=== PATIENT | female | born 1970 | race American Indian/Alaskan Native ===

== ENCOUNTER 2017-07-06 12:57 | Emergency (ER) | payer SELFPAY ==
[2017-07-06 13:34] VITALS: BP 133/71
[2017-07-06 14:02] LABS: Basophils % (Auto) 1.6 % (0.0-1.8); Eosinophils % (Auto) 0.6 % (0.0-4.3); Hematocrit 41.7 % (30.3-42.9); Hemoglobin 14.2 gm/dl (10.1-14.3); Mean Corpuscular HGB Conc 34 % (30-34); Mean Corpuscular Hemoglobin 31 pg (28-32); Mean Corpuscular Volume 90 fl (79-97); Platelet Count 272 K/mm3 (140-440); Red Blood Count 4.64 M/mm3 (3.65-5.03); Red Cell Distribution Width 14.6 % (13.2-15.2); White Blood Count 6.5 K/mm3 (4.5-11.0)
[2017-07-06 14:20] LABS: Anion Gap 19 mmol/L; BUN/Creatinine Ratio 27; Blood Urea Nitrogen 16 mg/dL (7-17); Calcium 9.5 mg/dL (8.4-10.2); Carbon Dioxide 27 mmol/L (22-30); Chloride 99.3 mmol/L (98-107); Glucose 91 mg/dL (65-100); Potassium 4.1 mmol/L (3.6-5.0); Sodium 141 mmol/L (137-145)
[2017-07-06 14:20] LABS: Urine Drugs of Abuse Note Disclamer
[2017-07-06 14:37] LABS: Bacteria,Urine 1+ /HPF (Negative); Bilirubin,Urine NEG (Negative); Blood,Urine NEG (Negative); Ketones,Urine NEG (Negative); Leukocyte Esterase,Urine NEG (Negative); Mucus,Urine 3+ /HPF; Nitrite,Urine NEG (Negative); Protein,Urine <15 mg/dL mg/dL (Negative); Urobilinogen,Urine < 2.0 mg/dL (<2.0)
== END 2017-07-06 13:45 | disposition left against medical advice (07) ==
LOC: ED 12:57
DX: R53.1 Weakness (principal); Z53.21 Procedure and treatment not carried out due to patient leaving prior to being seen by health care provider
CPT/HCPCS: 36415; 80048; 80307; 81001; 84703; 85025; G0480; 80320

== ENCOUNTER 2018-04-18 07:38 | Emergency (ER) | payer SELFPAY ==
[2018-04-18 08:09] VITALS: BP 128/85
[2018-04-18 08:59] LABS: Bilirubin,Urine NEG (Negative); Blood,Urine NEG (Negative); Color,Urine Yellow (Yellow); Mucus,Urine 1+ /HPF; Protein,Urine <15 mg/dL mg/dL (Negative); Urobilinogen,Urine < 2.0 mg/dL (<2.0)
[2018-04-18 09:04] LABS: HCG Qualitative,Urine Negative (Negative)
--- NOTE | 2018-04-18 10:40 | Emergency Department Report ---
ED Female HPI - General Chief complaint: Urogenital-Female Stated complaint: SEVERE PELVIN PAIN Time Seen by Provider: 04/18/18 10:06 Source: patient Mode of arrival: Ambulatory Limitations: No Limitations - History of Present Illness Initial comments: This is a 47-year-old female nontoxic, well nourished in appearance, no acute signs of distress presents to the ED with c/o of dysuria, polyuria, urinary frequency and vaginal discharge x1 week. Patient denies any vaginal pain or swelling. Patient denies any vaginal ulcers or lesions. Patient denies any nausea, vomiting, chest pain, shortness of breathe, fever, chills, headache, back pain, numbness, tingling, stiff neck. Patient denies any pelvic or abdominal pain. Patient denies any other urinary symptoms. Patient denies any allergies or PMH. MD Complaint: vaginal discharge, dysuria, possible STD -: week(s) (1) Radiation: non-radiating Severity: mild Severity scale (0 -10): 3 Quality: burning Consistency: constant Improves with: none Worsens with: urination Are you Now?: No Associated Symptoms: vaginal discharge, dysuria. denies: vaginal bleeding, abdominal pain, nausea/vomiting, fever/chills, headaches, loss of appetite, hematuria, rash, seizure, shortness of breath, syncope, weakness - Related Data Sexually active: Yes Previous Rx's Medication Instructions Recorded Last Taken Type Ferrous Gluconate [Ferrous 325 mg PO Q8HR #20 tablet 04/01/14 Unknown Rx Gluconate 325 MG tab] LORazepam [Ativan] 0.5 mg PO Q12HRT PRN #7 tablet 04/01/14 Unknown Rx hydrOXYzine PAMOATE [Vistaril] 50 mg PO Q6HR PRN #20 capsule 07/09/14 Unknown Rx Sulfamethoxazole/Trimethoprim 1 each PO BID #14 tablet 04/18/18 Unknown Rx [Bactrim DS TAB] Allergies Allergy/AdvReac Type Severity Reaction Status Date / Time shrimp Allergy Swelling Verified 07/06/17 13:29 ED Review of Systems ROS: Stated complaint: SEVERE PELVIN PAIN Other details as noted in HPI Constitutional: denies: chills, fever Eyes: denies: eye pain, eye discharge, vision change ENT: denies: ear pain, throat pain Respiratory: denies: cough, shortness of breath, wheezing Cardiovascular: denies: chest pain, palpitations Endocrine: no symptoms reported Gastrointestinal: denies: abdominal pain, nausea, diarrhea Genitourinary: urgency, dysuria, frequency, discharge. denies: hematuria Musculoskeletal: denies: back pain, joint swelling, arthralgia Skin: denies: rash, lesions Neurological: denies: headache, weakness, paresthesias Psychiatric: denies: anxiety, depression Hematological/Lymphatic: denies: easy bleeding, easy bruising ED Past Medical Hx - Past Medical History Previous Medical History?: Yes Additional medical history: anxiety. anemia. hypothyroid - Surgical History Additional Surgical History: right ankle. "tummy tuck". umbilical hernia repair. x 2 - Social History Smoking Status: Never Smoker Substance Use Type: None - Medications Home Medications: Home Medications Medication Instructions Recorded Confirmed Last Taken Type Ferrous Gluconate [Ferrous 325 mg PO Q8HR #20 tablet 04/01/14 Unknown Rx Gluconate 325 MG tab] LORazepam [Ativan] 0.5 mg PO Q12HRT PRN #7 tablet 04/01/14 Unknown Rx hydrOXYzine PAMOATE [Vistaril] 50 mg PO Q6HR PRN #20 capsule 07/09/14 Unknown Rx Sulfamethoxazole/Trimethoprim 1 each PO BID #14 tablet 04/18/18 Unknown Rx [Bactrim DS TAB] ED Physical Exam - General Limitations: No Limitations General appearance: alert, in no apparent distress - Head Head exam: Present: atraumatic, normocephalic - Eye Eye exam: Present: normal appearance Pupils: Present: normal accommodation - ENT ENT exam: Present: normal exam, mucous membranes moist - Neck Neck exam: Present: normal inspection, full ROM. Absent: tenderness, meningismus, lymphadenopathy - Respiratory Respiratory exam: Present: normal lung sounds bilaterally. Absent: respiratory distress, wheezes, rales, rhonchi, stridor, chest wall tenderness, accessory muscle use, decreased breath sounds, prolonged expiratory - Cardiovascular Cardiovascular Exam: Present: regular rate, normal rhythm, normal heart sounds. Absent: bradycardia, tachycardia, irregular rhythm, systolic murmur, diastolic murmur, rubs, gallop - GI/Abdominal GI/Abdominal exam: Present: soft, normal bowel sounds. Absent: distended, tenderness, guarding, rebound, rigid, diminished bowel sounds - Rectal Rectal exam: Present: deferred - External exam: Present: normal external exam, other (arrow point attacher Sybil RUBIO present during exam). Absent: erythema, swelling, lesions, lacerations, ecchymosis, bleeding Speculum exam: Present: normal speculum exam, cervical discharge (slight), other (arrow point attacher Sybil RN present during exam). Absent: erythema, vaginal discharge, vaginal bleeding, foreign body, tissue, laceration Bi-manual exam: Present: normal bi-manual exam, other (arrow point attacher Sybil RN present during exam). Absent: cervical motion tendernes, adnexal tenderness, adnexal mass, uterine enlargement, uterine tenderness - Extremities Exam Extremities exam: Present: normal inspection, full ROM, normal capillary refill. Absent: tenderness, joint swelling - Back Exam Back exam: Present: normal inspection, full ROM. Absent: tenderness, CVA tenderness (R), CVA tenderness (L), muscle spasm, paraspinal tenderness, vertebral tenderness, rash noted - Neurological Exam Neurological exam: Present: alert, oriented X3, normal gait - Psychiatric Psychiatric exam: Present: normal affect, normal mood - Skin Skin exam: Present: warm, dry, intact, normal color. Absent: rash ED Course Vital Signs 04/18/18 08:06 Temperature 98.3 F Pulse Rate 82 Respiratory 16 Rate Blood Pressure 128/85 O2 Sat by Pulse 100 Oximetry - Reevaluation(s) Reevaluation #1: 04/18/18 10:38 Patient is speaking in full sentences with no signs of distress noted. ED Medical Decision Making - Medical Decision Making This is a 47-year-old female that presents with vaginal discharge and UTI symptoms. Patient is stable was examined by me. There is no abdominal tenderness. No pelvic pain. UA obtained within normal limited but due to sympotms i will treat patient with Bactrim. Urine culture pending. Wet prep obtained. Gonorrhea chlamydia swab pending. Patient was instructed to return in 3-5 days for GC results. Patient wanted empirical treatment so patient received 250 mg Rocephin and 1 g of azithromycin by mouth. Patient was instructed to Follow-up with a primary care doctor in 3-5 days or if symptoms worsen and continue return to emergency room as soon as possible. At time of discharge, the patient does not seem toxic or ill in appearance. No acute signs of distress noted. Patient agrees to discharge treatment plan of care. No further questions noted by the patient. Critical care attestation.: If time is entered above; I have spent that time in minutes in the direct care of this critically ill patient, excluding procedure time. ED Disposition Clinical Impression: Possible exposure to STD, Vaginal discharge UTI (urinary tract infection) Qualifiers: Urinary tract infection type: site unspecified Hematuria presence: without hematuria Qualified Code(s): N39.0 - Urinary tract infection, site not specified Disposition: TO HOME OR SELFCARE Is pt being admited?: No Does the pt Need Aspirin: No Condition: Stable Additional Instructions: Follow-up with a primary care doctor in 3-5 days or if symptoms worsen and continue return to emergency room as soon as possible. Return in 3-5 days for gonorrhea and chlamydia results. Prescriptions: Sulfamethoxazole/Trimethoprim [Bactrim DS TAB] 1 each PO BID #14 tablet Referrals: PRIMARY MD HARRY [Primary Care Provider] - 3-5 Days EUSEBIA MUNOZ MD [Staff Physician] - 3-5 Days [facility] [place]Outside] - 3-5 Days [facility] [Outside] - 3-5 Days Forms: Work/School Release Form(ED)
[2018-04-18] MEDS ORDERED: ROCEPHIN IM ONE (10:53)
[2018-04-18] MEDS ORDERED: XYLOCAINE 1% MPF 5 mL INFILTRATI ONE (10:53)
[2018-04-18] MEDS ORDERED: ZITHROMAX PO ONE (10:53)
== END 2018-04-18 11:40 | disposition home or self-care (01) ==
LOC: ED 07:38
DX: N39.0 Urinary tract infection, site not specified (principal); N89.8 Other specified noninflammatory disorders of vagina; F41.9 Anxiety disorder, unspecified; E03.9 Hypothyroidism, unspecified; Z86.2 Personal history of diseases of the blood and blood-forming organs and certain disorders involving the immune mechanism; Z91.013 Allergy to seafood
CPT/HCPCS: 81001; 81025; 87086; 87210; 87591; 96372; 99283; J0696

== ENCOUNTER 2018-05-08 01:12 | Emergency (ER) | payer OTHER ==
[2018-05-08 01:49] LABS: Basophils % (Auto) 0.6 % (0.0-1.8); Eosinophils # (Auto) 0.1 K/mm3 (0.0-0.4); Eosinophils % (Auto) 1.7 % (0.0-4.3); Hematocrit 32.9 % (30.3-42.9); Hemoglobin 10.8 gm/dl (10.1-14.3); Lymphocytes # (Auto) 1.5 K/mm3 (1.2-5.4); Lymphocytes % (Auto) 26.5 % (13.4-35.0); Mean Corpuscular HGB Conc 33 % (30-34); Mean Corpuscular Hemoglobin 27 pg (28-32); Mean Corpuscular Volume 82 fl (79-97); Monocytes # (Auto) 0.4 K/mm3 (0.0-0.8); Monocytes % (Auto) 7.5 % (0.0-7.3); Platelet Count 212 K/mm3 (140-440); Red Blood Count 4.03 M/mm3 (3.65-5.03); Red Cell Distribution Width 18.8 % (13.2-15.2)
[2018-05-08 02:02] LABS: Alanine Aminotransferase 24 units/L (7-56); Albumin 4.6 g/dL (3.9-5); BUN/Creatinine Ratio 19; Blood Urea Nitrogen 13 mg/dL (7-17); Calcium 9.1 mg/dL (8.4-10.2); Hemolysis Index 2
[2018-05-08 02:14] LABS: Bilirubin,Urine NEG (Negative); Blood,Urine NEG (Negative); Color,Urine Yellow (Yellow); Mucus,Urine 1+ /HPF; Protein,Urine <15 mg/dL mg/dL (Negative); Urobilinogen,Urine < 2.0 mg/dL (<2.0); WBC,Urine < 1.0 /HPF (0.0-6.0)
--- NOTE | 2018-05-08 08:51 | Ultrasound Report ---
FINAL REPORT EXAM: US PELVIC COMPLETE HISTORY: abd and pelvic pain COMPARISONS: None. FINDINGS: Transabdominal grayscale pelvic ultrasound Anteverted uterus measures 13 x 8.7 x 10.2 cm. Heterogeneous myometrium contains several transmural fibroids, the largest of which is in the posterior uterine body measuring 4.3 x 4.7 x 4 cm. No definite new medial distortion or submucosal component. The endometrium is heterogeneous and measures up to 2 cm in thickness. The ovaries are not visualized due to position/overlying bowel gas. No free fluid in the pelvis. IMPRESSION: Enlarged uterus with multiple fibroids. Heterogeneous endometrium measures up to 2 cm in thickness. Nonvisualized ovaries.
--- NOTE | 2018-05-08 08:55 | Ultrasound Report ---
FINAL REPORT EXAM: US ABDOMEN COMPLETE HISTORY: abd and pelvic pain COMPARISONS: None FINDINGS: Grayscale and color Doppler ultrasound evaluation of the abdomen Liver is normal in size and contour. Hepatic parenchymal echogenicity is within normal limits. No parenchymal lesion identified. No intra or extrahepatic biliary ductal dilatation. The common duct measures approximately 5 millimeters in caliber. Unremarkable sonographic appearance of the gallbladder. No cholelithiasis. Gallbladder wall measures approximately 1-2 millimeters in thickness. Imaged portion of the pancreatic head is sonographically unremarkable. The remainder of the pancreas is not well seen secondary to overlying bowel gas. The spleen is sonographically unremarkable and measures up to 11.6 cm in length. Imaged portions of the aorta and inferior vena cava are unremarkable. No abdominal ascites or free fluid in Capellan's pouch. The right kidney measures up to 12.4 cm and the left kidney measures 13.2 cm in length. Kidneys are without hydronephrosis. A 2 millimeter non shadowing cortical echogenic focus is present in the lower left kidney, which may represent dystrophic calcification, ectopic fat or a small benign angiomyolipoma. IMPRESSION: Unremarkable abdominal ultrasound. Consider follow-up CT for more sensitive and specific evaluation of abdominal pain as warranted.
--- NOTE | 2018-05-08 10:26 | Emergency Department Report ---
ED General Adult HPI - General Chief complaint: Abdominal Pain Stated complaint: WEAK,NAUSEA,PEARSON,BACK PAIN Time Seen by Provider: 05/08/18 06:56 Source: patient Mode of arrival: Ambulatory Limitations: No Limitations - History of Present Illness Initial comments: 47-year-old female presents with a variety of concerns. She states he's been having intermittent headaches for a few weeks. She presently came across of suprapubic abdominal pain and some urinary frequency. She has a history of fibroids. She states that her last period was delayed. She does not report any acute vomiting. She's had no fever or chills. She states that her bowel movements are slower than usual. She denies any sort of neurological change. Her headaches are intermittent and not currently present. She doesn't describe severe headaches. She doesn't describe any neck discomfort. She states that she does have a tube bender hand and primary care physician. She does not consult them over the course the last several weeks. -: Gradual, week(s) Location: head, abdomen Radiation: non-radiation Quality: aching Consistency: intermittent, now resolved Improves with: none Worsens with: none Associated Symptoms: denies other symptoms Treatments Prior to Arrival: none - Related Data Previous Rx's Medication Instructions Recorded Last Taken Type Ferrous Gluconate [Ferrous 325 mg PO Q8HR #20 tablet 04/01/14 Unknown Rx Gluconate 325 MG tab] LORazepam [Ativan] 0.5 mg PO Q12HRT PRN #7 tablet 04/01/14 Unknown Rx hydrOXYzine PAMOATE [Vistaril] 50 mg PO Q6HR PRN #20 capsule 07/09/14 Unknown Rx Sulfamethoxazole/Trimethoprim 1 each PO BID #14 tablet 04/18/18 Unknown Rx [Bactrim DS TAB] traMADol [Ultram 50 MG tab] 50 mg PO Q6HR PRN #14 tablet 05/08/18 Unknown Rx Allergies Allergy/AdvReac Type Severity Reaction Status Date / Time shrimp Allergy Swelling Verified 07/06/17 13:29 ED Review of Systems ROS: Stated complaint: WEAK,NAUSEA,PEARSON,BACK PAIN Other details as noted in HPI Constitutional: denies: chills, fever Eyes: denies: eye pain, eye discharge, vision change ENT: denies: ear pain, throat pain Respiratory: denies: cough, shortness of breath, wheezing Cardiovascular: denies: chest pain, palpitations Endocrine: no symptoms reported Gastrointestinal: abdominal pain. denies: nausea, diarrhea Genitourinary: denies: urgency, dysuria, discharge Musculoskeletal: denies: back pain, joint swelling, arthralgia Skin: denies: rash, lesions Neurological: headache. denies: weakness, numbness, paresthesias, confusion, abnormal gait, vertigo Psychiatric: denies: anxiety, depression Hematological/Lymphatic: denies: easy bleeding, easy bruising ED Past Medical Hx - Past Medical History Previous Medical History?: Yes Additional medical history: anxiety. anemia. hypothyroid - Surgical History Past Surgical History?: Yes Additional Surgical History: right ankle. "tummy tuck". umbilical hernia repair. x 2 - Social History Smoking Status: Former Smoker Substance Use Type: None - Medications Home Medications: Home Medications Medication Instructions Recorded Confirmed Last Taken Type Ferrous Gluconate [Ferrous 325 mg PO Q8HR #20 tablet 04/01/14 Unknown Rx Gluconate 325 MG tab] LORazepam [Ativan] 0.5 mg PO Q12HRT PRN #7 tablet 04/01/14 Unknown Rx hydrOXYzine PAMOATE [Vistaril] 50 mg PO Q6HR PRN #20 capsule 07/09/14 Unknown Rx Sulfamethoxazole/Trimethoprim 1 each PO BID #14 tablet 04/18/18 Unknown Rx [Bactrim DS TAB] traMADol [Ultram 50 MG tab] 50 mg PO Q6HR PRN #14 tablet 05/08/18 Unknown Rx ED Physical Exam - General Limitations: No Limitations General appearance: alert, in no apparent distress - Head Head exam: Present: atraumatic, normocephalic - Eye Eye exam: Present: normal appearance, PERRL, EOMI. Absent: scleral icterus - ENT ENT exam: Present: mucous membranes moist - Neck Neck exam: Present: normal inspection. Absent: tenderness, meningismus - Respiratory Respiratory exam: Present: normal lung sounds bilaterally. Absent: respiratory distress - Cardiovascular Cardiovascular Exam: Present: regular rate, normal rhythm. Absent: systolic murmur, diastolic murmur, rubs, gallop - GI/Abdominal GI/Abdominal exam: Present: soft, normal bowel sounds, organomegaly (perhaps the uterus is somewhat full). Absent: distended, tenderness, guarding, rebound , rigid, bruit, pulsatile mass, hernia - Extremities Exam Extremities exam: Present: normal inspection, normal capillary refill. Absent: pedal edema, calf tenderness - Back Exam Back exam: Present: normal inspection. Absent: CVA tenderness (R), CVA tenderness (L) - Neurological Exam Neurological exam: Present: alert, oriented X3, CN II-XII intact. Absent: motor sensory deficit - Psychiatric Psychiatric exam: Present: normal affect, normal mood - Skin Skin exam: Present: warm, dry, intact, normal color. Absent: rash ED Course Vital Signs 05/08/18 05/08/18 05/08/18 01:13 06:36 06:46 Temperature 98.3 F Pulse Rate 77 63 Respiratory 18 16 Rate Blood Pressure 124/87 139/80 O2 Sat by Pulse 100 77 L 100 Oximetry 05/08/18 05/08/18 06:50 07:00 Temperature Pulse Rate 63 Respiratory 18 16 Rate Blood Pressure 136/82 O2 Sat by Pulse 99 100 Oximetry - Reevaluation(s) Reevaluation #1: Patient remained comfortable in the emergency Department. Acute analgesia was not indicated. She didn't complain of nausea and did not vomit either. Abdominal ultrasound showed multiple fibroids. I did not feel that CT imaging of the head was indicated at this. Patient is directed to follow up with her primary care provider or tube bender hand. 05/08/18 10:24 ED Medical Decision Making - Lab Data Result diagrams: 05/08/18 01:33 05/08/18 01:33 Laboratory Results - last 24 hr 05/08/18 05/08/18 05/08/18 01:33 01:33 01:33 WBC 5.6 RBC 4.03 Hgb 10.8 Hct 32.9 MCV 82 MCH 27 L MCHC 33 RDW 18.8 H Plt Count 212 Lymph % (Auto) 26.5 [place] % (Auto) 7.5 H Eos % (Auto) 1.7 Baso % (Auto) 0.6 Lymph # 1.5 [place] # 0.4 Eos # 0.1 Baso # 0.0 Seg Neutrophils % 63.7 Seg Neutrophils # 3.6 Sodium 141 Potassium 3.5 L Chloride 102.0 Carbon Dioxide 28 Anion Gap 15 BUN 13 Creatinine 0.7 Estimated GFR > 60 BUN/Creatinine Ratio 19 Glucose 90 Calcium 9.1 Total Bilirubin 0.20 AST 23 ALT 24 Alkaline Phosphatase 55 Total Protein 8.3 H Albumin 4.6 Albumin/Globulin Ratio 1.2 HCG, Qual Negative Urine Color Urine Turbidity Urine pH Ur Specific [place] Urine Protein Urine Glucose (UA) Urine Ketones Urine Blood Urine Nitrite Urine Bilirubin Urine Urobilinogen Ur Leukocyte Esterase Urine WBC (Auto) Urine RBC (Auto) U Epithel Cells (Auto) Urine Mucus 05/08/18 01:53 WBC RBC Hgb Hct MCV MCH MCHC RDW Plt Count Lymph % (Auto) [place] % (Auto) Eos % (Auto) Baso % (Auto) Lymph # [place] # Eos # Baso # Seg Neutrophils % Seg Neutrophils # Sodium Potassium Chloride Carbon Dioxide Anion Gap BUN Creatinine Estimated GFR BUN/Creatinine Ratio Glucose Calcium Total Bilirubin AST ALT Alkaline Phosphatase Total Protein Albumin Albumin/Globulin Ratio HCG, Qual Urine Color Yellow Urine Turbidity Clear Urine pH 6.0 Ur Specific [place] 1.023 Urine Protein <15 mg/dl Urine Glucose (UA) Neg Urine Ketones Neg Urine Blood Neg Urine Nitrite Neg Urine Bilirubin Neg Urine Urobilinogen < 2.0 Ur Leukocyte Esterase Neg Urine WBC (Auto) < 1.0 Urine RBC (Auto) 2.0 U Epithel Cells (Auto) 1.0 Urine Mucus 1+ - Radiology Data Radiology results: report reviewed interpreted by me: Multiple leiomyomata Critical care attestation.: If time is entered above; I have spent that time in minutes in the direct care of this critically ill patient, excluding procedure time. ED Disposition Clinical Impression: Abdominal pain Qualifiers: Abdominal location: lower abdomen, unspecified Qualified Code(s): R10.30 - Lower abdominal pain, unspecified Leiomyoma of uterus Qualifiers: Uterine leiomyoma location: unspecified location Qualified Code(s): D25.9 - Leiomyoma of uterus, unspecified Cephalalgia Qualifiers: Headache type: unspecified Headache chronicity pattern: chronic headache Intractability: not intractable Qualified Code(s): R51 - Headache Disposition: DC-01 TO HOME OR SELFCARE Is pt being admited?: No Does the pt Need Aspirin: No Condition: Stable Instructions: Abdominal Pain (ED), Uterine Fibroids (ED), Acute Headache (ED) Additional Instructions: Return any acute change or problem. Follow-up with your usual physicians. Your tube bender hand oncologist the ultrasound report that I have given you. Prescriptions: traMADol [Ultram 50 MG tab] 50 mg PO Q6HR PRN #14 tablet PRN Reason: Pain Referrals: PRIMARY CARE,MD [Primary Care Provider] - 3-5 Days usual, tube bender hand [Other] - 3-5 Days Time of Disposition: 10:28
[2018-05-08 11:02] VITALS: BP 142/80
== END 2018-05-08 11:27 | disposition home or self-care (01) ==
LOC: ED 01:12
DX: D25.9 Leiomyoma of uterus, unspecified (principal); R51 Headache; F41.9 Anxiety disorder, unspecified; D64.9 Anemia, unspecified; Z87.891 Personal history of nicotine dependence; Z91.013 Allergy to seafood
CPT/HCPCS: 36415; 76700; 76856; 80053; 81001; 84703; 85025; 99284

== ENCOUNTER 2018-06-23 07:43 | Emergency (ER) | payer SELFPAY ==
[2018-06-23 08:38] VITALS: BP 114/76
[2018-06-23 09:04] LABS: Basophils % (Auto) 0.6 % (0.0-1.8); Eosinophils # (Auto) 0.1 K/mm3 (0.0-0.4); Eosinophils % (Auto) 1.3 % (0.0-4.3); Hematocrit 32.3 % (30.3-42.9); Hemoglobin 10.5 gm/dl (10.1-14.3); Lymphocytes # (Auto) 1.7 K/mm3 (1.2-5.4); Lymphocytes % (Auto) 25.5 % (13.4-35.0); Mean Corpuscular HGB Conc 33 % (30-34); Mean Corpuscular Hemoglobin 27 pg (28-32); Mean Corpuscular Volume 83 fl (79-97); Monocytes # (Auto) 0.5 K/mm3 (0.0-0.8); Monocytes % (Auto) 8.1 % (0.0-7.3); Platelet Count 240 K/mm3 (140-440); Red Blood Count 3.91 M/mm3 (3.65-5.03); Red Cell Distribution Width 17.8 % (13.2-15.2)
[2018-06-23 09:15] LABS: Bilirubin,Urine NEG (Negative); Blood,Urine NEG (Negative); Color,Urine Yellow (Yellow); Mucus,Urine 3+ /HPF; Protein,Urine <15 mg/dL mg/dL (Negative); Urobilinogen,Urine < 2.0 mg/dL (<2.0)
[2018-06-23 09:37] LABS: Alanine Aminotransferase 19 units/L (7-56); Albumin 4.3 g/dL (3.9-5); BUN/Creatinine Ratio 23; Blood Urea Nitrogen 14 mg/dL (7-17); Calcium 9.2 mg/dL (8.4-10.2); Hemolysis Index 7; Lipase 25 units/L (13-60)
[2018-06-23] MEDS ORDERED: BENTYL IM ONE (09:37)
[2018-06-23] MEDS ORDERED: PEPCID PO ONE (09:37)
--- NOTE | 2018-06-23 09:39 | Emergency Department Report ---
Blank Doc - Documentation Documentation: Patient is a 48-year-old female who is presenting with epigastric discomfort after eating for the last week. Patient states she's had decreased appetite and belching. She states the pain is described as a burning sensation is 5 out of 10 in severity. Patient also has had some fatigue associated with these symptoms as well. A focused physical exam patient has no pain in the epigastrium or right upper quadrant on exam is no rebound or guarding and normal bowel sounds. Patient will have laboratory studies done an ultrasound of the upper abdominal be obtained to rule out surgical abnormalities.
--- NOTE | 2018-06-23 10:39 | Ultrasound Report ---
ULTRASOUND ABDOMEN LIMITED: TECHNIQUE: Transabdominal ultrasound with color Doppler interrogation. HISTORY: Epigastric and right upper quadrant pain after eating. COMPARISON: Abdominal sonogram dated 05/08/18. FINDINGS: LIVER: Normal. BILIARY SYSTEM: Normal. PANCREAS: Normal. RIGHT KIDNEY: Normal. PROXIMAL AORTA: Normal. ASCITES: None. IMPRESSION: Unremarkable exam.
--- NOTE | 2018-06-23 11:33 | Emergency Department Report ---
Vomiting/Diarrhea - HPI Chief Complaint: Abdominal Pain Stated Complaint: HEADACHE,FATIGUE/LOSS APPETITE Time Seen by Provider: 06/23/18 09:19 Duration: 1 week Severity: moderate Nausea/Vomiting Severity: None Diarrhea Severity: None Pain Location: Epigastric Pain Severity: Moderate Symptoms: Yes Able to Tolerate Fluids, No Watery Diarrhea, No Bloody diarrhea, No Fever, No Recent Unusual Foods, No Recent Untreated Water, No Recent use of Antibiotics, No Family w/ Similar Symptoms, No Contacts w/ Similar Symptoms, No Rash, No Hematuria, No Recent URI Symptoms Other History: This is a 48-year-old -[place] female who presents with abdominal pain and fatigue for 1 week. She reports an increased amount of belching after eating and throughout the day. Her appetite has decreased and there is discomfort or burning sensation to the epigastric dominant region after eating. She describes burning sensation in 5 out of 10 on pain scale. She is also concerned with fatigue and increased amounts of soft bowel that presented with symptoms. She denies nausea or vomiting, chest pain, vaginal discharge or bleeding, shortness of breath, and diarrhea. ED Review of Systems ROS: Stated complaint: HEADACHE,FATIGUE/LOSS APPETITE Other details as noted in HPI Constitutional: denies: chills, fever Respiratory: denies: cough, shortness of breath, wheezing Cardiovascular: denies: chest pain, palpitations Gastrointestinal: abdominal pain (epigastric region). denies: nausea, diarrhea Musculoskeletal: denies: back pain, joint swelling, arthralgia Skin: denies: rash, lesions Neurological: denies: headache, weakness, paresthesias Psychiatric: denies: anxiety, depression ED Past Medical Hx - Past Medical History Previous Medical History?: Yes Additional medical history: anxiety. anemia. hypothyroid - Surgical History Past Surgical History?: Yes Additional Surgical History: right ankle. "tummy tuck". umbilical hernia repair. x 2 - Social History Smoking Status: Never Smoker Substance Use Type: None - Medications Home Medications: Home Medications Medication Instructions Recorded Confirmed Last Taken Type Ferrous Gluconate [Ferrous 325 mg PO Q8HR #20 tablet 04/01/14 Unknown Rx Gluconate 325 MG tab] LORazepam [Ativan] 0.5 mg PO Q12HRT PRN #7 tablet 04/01/14 Unknown Rx hydrOXYzine PAMOATE [Vistaril] 50 mg PO Q6HR PRN #20 capsule 07/09/14 Unknown Rx Sulfamethoxazole/Trimethoprim 1 each PO BID #14 tablet 04/18/18 Unknown Rx [Bactrim DS TAB] traMADol [Ultram 50 MG tab] 50 mg PO Q6HR PRN #14 tablet 05/08/18 Unknown Rx Pantoprazole [Protonix] 40 mg PO QDAY #30 tablet 06/23/18 Unknown Rx Vomiting Diarrhea Exam - Exam General: Vital signs noted. No distress. Alert and acting appropriately. HEENT: Yes Moist Mucous Membranes, No Pharyngeal Erythema, No Pharyngeal Exudates, No Rhinorrhea, No Conjuctival Injection, No Frontal Tenderness, No Maxillary Tenderness Neck: No Adenopathy, No Rigidity Lungs: Yes Clear Lung Sounds, Yes Good Air Exchange, No Wheezes, No Stridor, No Cough, No Nasal Flaring, No Retractions, No Use of Accessory Muscles Heart exam: Regular: Yes, Murmur: No, Tachycardia: No Abdomen: Tenderness: No, Peritoneal Signs: No, Distention: No, Hyperactive Bowel sounds: No Skin exam: Rash: No, Edema: No, Normal turgor: Yes Neurologic: Alert and oriented, no deficits. Musculoskeletal: Unremarkable. ED Course Vital Signs 06/23/18 08:30 Temperature 98.6 F Pulse Rate 82 Respiratory 18 Rate Blood Pressure 114/76 O2 Sat by Pulse 100 Oximetry ED Medical Decision Making - Lab Data Result diagrams: 06/23/18 08:51 06/23/18 08:51 Lab Results 06/23/18 06/23/18 06/23/18 Range/Units 08:51 08:51 08:51 WBC 6.7 (4.5-11.0) K/mm3 RBC 3.91 (3.65-5.03) M/mm3 Hgb 10.5 (10.1-14.3) gm/dl Hct 32.3 (30.3-42.9) % MCV 83 (79-97) fl MCH 27 L (28-32) pg MCHC 33 (30-34) % RDW 17.8 H (13.2-15.2) % Plt Count 240 (140-440) K/mm3 Lymph % (Auto) 25.5 (13.4-35.0) % [place] % (Auto) 8.1 H (0.0-7.3) % Eos % (Auto) 1.3 (0.0-4.3) % Baso % (Auto) 0.6 (0.0-1.8) % Lymph # 1.7 (1.2-5.4) K/mm3 [place] # 0.5 (0.0-0.8) K/mm3 Eos # 0.1 (0.0-0.4) K/mm3 Baso # 0.0 (0.0-0.1) K/mm3 Seg Neutrophils % 64.5 (40.0-70.0) % Seg Neutrophils # 4.3 (1.8-7.7) K/mm3 Sodium 139 (137-145) mmol/L Potassium 3.9 (3.6-5.0) mmol/L Chloride 101.1 (98-107) mmol/L Carbon Dioxide 27 (22-30) mmol/L Anion Gap 15 mmol/L BUN 14 (7-17) mg/dL Creatinine 0.6 L (0.7-1.2) mg/dL Estimated GFR > 60 ml/min BUN/Creatinine Ratio 23 % Glucose 94 (65-100) mg/dL Calcium 9.2 (8.4-10.2) mg/dL Total Bilirubin 0.20 (0.1-1.2) mg/dL AST 17 (5-40) units/L ALT 19 (7-56) units/L Alkaline Phosphatase 48 (35-129) units/L Total Protein 8.5 H (6.3-8.2) g/dL Albumin 4.3 (3.9-5) g/dL Albumin/Globulin Ratio 1.0 % Lipase 25 (13-60) units/L HCG, Qual Negative (Negative) Urine Color (Yellow) Urine Turbidity (Clear) Urine pH (5.0-7.0) Ur Specific [place] (1.003-1.030) Urine Protein (Negative) mg/dL Urine Glucose (UA) (Negative) mg/dL Urine Ketones (Negative) mg/dL Urine Blood (Negative) Urine Nitrite (Negative) Urine Bilirubin (Negative) Urine Urobilinogen (<2.0) mg/dL Ur Leukocyte Esterase (Negative) Urine WBC (Auto) (0.0-6.0) /HPF Urine RBC (Auto) (0.0-6.0) /HPF U Epithel Cells (Auto) (0-13.0) /HPF Urine Mucus /HPF 06/23/18 Range/Units 08:57 WBC (4.5-11.0) K/mm3 RBC (3.65-5.03) M/mm3 Hgb (10.1-14.3) gm/dl Hct (30.3-42.9) % MCV (79-97) fl MCH (28-32) pg MCHC (30-34) % RDW (13.2-15.2) % Plt Count (140-440) K/mm3 Lymph % (Auto) (13.4-35.0) % [place] % (Auto) (0.0-7.3) % Eos % (Auto) (0.0-4.3) % Baso % (Auto) (0.0-1.8) % Lymph # (1.2-5.4) K/mm3 [place] # (0.0-0.8) K/mm3 Eos # (0.0-0.4) K/mm3 Baso # (0.0-0.1) K/mm3 Seg Neutrophils % (40.0-70.0) % Seg Neutrophils # (1.8-7.7) K/mm3 Sodium (137-145) mmol/L Potassium (3.6-5.0) mmol/L Chloride (98-107) mmol/L Carbon Dioxide (22-30) mmol/L Anion Gap mmol/L BUN (7-17) mg/dL Creatinine (0.7-1.2) mg/dL Estimated GFR ml/min BUN/Creatinine Ratio % Glucose (65-100) mg/dL Calcium (8.4-10.2) mg/dL Total Bilirubin (0.1-1.2) mg/dL AST (5-40) units/L ALT (7-56) units/L Alkaline Phosphatase (35-129) units/L Total Protein (6.3-8.2) g/dL Albumin (3.9-5) g/dL Albumin/Globulin Ratio % Lipase (13-60) units/L HCG, Qual (Negative) Urine Color Yellow (Yellow) Urine Turbidity Slightly-cloudy (Clear) Urine pH 5.0 (5.0-7.0) Ur Specific [place] 1.027 (1.003-1.030) Urine Protein <15 mg/dl (Negative) mg/dL Urine Glucose (UA) Neg (Negative) mg/dL Urine Ketones Tr (Negative) mg/dL Urine Blood Neg (Negative) Urine Nitrite Neg (Negative) Urine Bilirubin Neg (Negative) Urine Urobilinogen < 2.0 (<2.0) mg/dL Ur Leukocyte Esterase Neg (Negative) Urine WBC (Auto) 1.0 (0.0-6.0) /HPF Urine RBC (Auto) 1.0 (0.0-6.0) /HPF U Epithel Cells (Auto) < 1.0 (0-13.0) /HPF Urine Mucus 3+ /HPF - Radiology Data Radiology results: report reviewed, image reviewed ULTRASOUND ABDOMEN LIMITED: TECHNIQUE: Transabdominal ultrasound with color Doppler interrogation. HISTORY: Epigastric and right upper quadrant pain after eating. COMPARISON: Abdominal sonogram dated 05/08/18. FINDINGS: LIVER: Normal. BILIARY SYSTEM: Normal. PANCREAS: Normal. RIGHT KIDNEY: Normal. PROXIMAL AORTA: Normal. ASCITES: None. IMPRESSION: Unremarkable exam. - Medical Decision Making Patient was examined by me and Dr. Jose in the emergency room. Vitals are normal and patient is in no acute distress. Obtained a labs and ultrasound of abdomen. All labs are unremarkable. Ultrasound dictated per radiologist report reviewed by myself with no acute findings. Start Protonix 40 mg by mouth daily for trial for suspected GERD. Referral to gastroenterology to rule out GERD or peptic ulcer disease. Patient discharged home in stable condition. Follow-up with primary care provider in one week. Critical care attestation.: If time is entered above; I have spent that time in minutes in the direct care of this critically ill patient, excluding procedure time. ED Disposition Clinical Impression: Epigastric pain, GERD with esophagitis Disposition: DC-01 TO HOME OR SELFCARE Is pt being admited?: No Does the pt Need Aspirin: No Condition: Stable Instructions: Gastroesophageal Reflux Disease (ED), Abdominal Pain (ED) Additional Instructions: Follow-up with gastroenterology for further evaluation. Take Protonix once a day to prevent stomach pain. Follow-up with primary care provider in one week. Prescriptions: Pantoprazole [Protonix] 40 mg PO QDAY #30 tablet Referrals: [facility] [Provider Group] - 3-5 Days [facility] [Provider Group] - 3-5 Days [facility] [Provider Group] - 3-5 Days Forms: Work/School Release Form(ED) Time of Disposition: 11:31 Print Language: SAUDI ARABIAN
== END 2018-06-23 11:37 | disposition home or self-care (01) ==
LOC: ED 07:43
DX: K21.0 Gastro-esophageal reflux disease with esophagitis (principal); E03.9 Hypothyroidism, unspecified
CPT/HCPCS: 36415; 76705; 80053; 81001; 83690; 84703; 85025; 96372; 99284; J0500

== ENCOUNTER 2018-10-18 15:45 | Emergency (ER) | payer SELFPAY ==
[2018-10-18 16:40] LABS: HCG Qualitative,Urine Negative (Negative)
[2018-10-18 16:41] LABS: Bacteria,Urine 1+ /HPF (Negative); Bilirubin,Urine NEG (Negative); Blood,Urine NEG (Negative); Color,Urine Yellow (Yellow); Hyaline Casts,Urine 1 /LPF; Mucus,Urine 3+ /HPF; Protein,Urine <15 mg/dL mg/dL (Negative); Urobilinogen,Urine < 2.0 mg/dL (<2.0)
--- NOTE | 2018-10-18 16:56 | Emergency Department Report ---
ED Female HPI - General Chief complaint: Urogenital-Female Stated complaint: DIZZY/BACK PAIN/URINATING ALOT Time Seen by Provider: 10/18/18 16:49 Source: patient Mode of arrival: Ambulatory Limitations: No Limitations - History of Present Illness Initial comments: Patient is a 58-year-old female with no prominent history of present ED complaining of back pain times a couple of days. Patient states that her entire back hurts. Patient states that back pain is intermittent and describes it as a canned spasming type pain. Patient states that she has taken some pain medication which alleviates the back pain at the moment. Patient states that she noticed some lesions in her vaginal area. She admits dysuria and urinary frequency. Patient also states that she feels like there is a bump in her vagina. She denies any vaginal discharge, vaginal lesions or vaginal bleeding She denies fevers/chills/nausea vomiting chest pain/dizziness - Related Data Previous Rx's Medication Instructions Recorded Last Taken Type Ferrous Gluconate [Ferrous 325 mg PO Q8HR #20 tablet 04/01/14 Unknown Rx Gluconate 325 MG tab] LORazepam [Ativan] 0.5 mg PO Q12HRT PRN #7 tablet 04/01/14 Unknown Rx hydrOXYzine PAMOATE [Vistaril] 50 mg PO Q6HR PRN #20 capsule 07/09/14 Unknown Rx Pantoprazole [Protonix] 40 mg PO QDAY #30 tablet 06/23/18 Unknown Rx Docusate Sodium [Colace] 100 mg PO BID PRN #20 capsule 07/30/18 Unknown Rx Magnesium Citrate [Citrate of 300 ml PO NOW #1 bottle 07/30/18 Unknown Rx Magnesia] Phenazopyridine [Pyridium] 200 mg PO BID #10 tab 10/18/18 Unknown Rx Sulfamethoxazole/Trimethoprim 1 each PO BID #14 tablet 10/18/18 Unknown Rx [Bactrim DS TAB] traMADol [Ultram 50 MG tab] 50 mg PO Q6HR PRN #14 tablet 10/18/18 Unknown Rx Allergies Allergy/AdvReac Type Severity Reaction Status Date / Time shrimp Allergy Swelling Verified 10/18/18 15:54 ED Review of Systems ROS: Stated complaint: DIZZY/BACK PAIN/URINATING ALOT Other details as noted in HPI Comment: All other systems reviewed and negative ED Past Medical Hx - Past Medical History Previous Medical History?: Yes Additional medical history: anxiety. anemia. hypothyroid - Surgical History Additional Surgical History: right ankle. "tummy tuck". umbilical hernia repair. x 2 - Social History Smoking Status: Never Smoker Substance Use Type: Alcohol - Medications Home Medications: Home Medications Medication Instructions Recorded Confirmed Last Taken Type Ferrous Gluconate [Ferrous 325 mg PO Q8HR #20 tablet 04/01/14 Unknown Rx Gluconate 325 MG tab] LORazepam [Ativan] 0.5 mg PO Q12HRT PRN #7 tablet 04/01/14 Unknown Rx hydrOXYzine PAMOATE [Vistaril] 50 mg PO Q6HR PRN #20 capsule 07/09/14 Unknown Rx Pantoprazole [Protonix] 40 mg PO QDAY #30 tablet 06/23/18 Unknown Rx Docusate Sodium [Colace] 100 mg PO BID PRN #20 capsule 07/30/18 Unknown Rx Magnesium Citrate [Citrate of 300 ml PO NOW #1 bottle 07/30/18 Unknown Rx Magnesia] Phenazopyridine [Pyridium] 200 mg PO BID #10 tab 10/18/18 Unknown Rx Sulfamethoxazole/Trimethoprim 1 each PO BID #14 tablet 10/18/18 Unknown Rx [Bactrim DS TAB] traMADol [Ultram 50 MG tab] 50 mg PO Q6HR PRN #14 tablet 10/18/18 Unknown Rx ED Physical Exam - General Limitations: No Limitations General appearance: alert, in no apparent distress - Head Head exam: Present: atraumatic, normocephalic - Eye Eye exam: Present: normal appearance - ENT ENT exam: Present: mucous membranes moist - Neck Neck exam: Present: normal inspection - Respiratory Respiratory exam: Present: normal lung sounds bilaterally. Absent: respiratory distress - Cardiovascular Cardiovascular Exam: Present: regular rate, normal rhythm. Absent: systolic murmur, diastolic murmur, rubs, gallop - GI/Abdominal GI/Abdominal exam: Present: soft, normal bowel sounds. Absent: distended, tenderness, guarding, rebound, rigid, bruit - External exam: Present: normal external exam. Absent: erythema, swelling, lesions, lacerations, bleeding - Extremities Exam Extremities exam: Present: normal inspection - Back Exam Back exam: Present: normal inspection, full ROM, CVA tenderness (R), CVA tenderness (L). Absent: tenderness, paraspinal tenderness, vertebral tenderness, rash noted - Neurological Exam Neurological exam: Present: alert, oriented X3, CN II-XII intact, normal gait - Psychiatric Psychiatric exam: Present: normal affect, normal mood - Skin Skin exam: Present: warm, dry, intact, normal color. Absent: rash ED Course Vital Signs 10/18/18 10/18/18 15:54 18:33 Temperature 97.8 F 98.5 F Pulse Rate 95 H 87 Respiratory 18 20 Rate Blood Pressure 111/80 Blood Pressure 119/73 [Right] O2 Sat by Pulse 100 98 Oximetry ED Medical Decision Making - Medical Decision Making 48-year-old female present with flank pain from kidney stone versus myalgia Urinalysis positive for hyaline casts, 1+ bacteria. No signs of cystitis present. This is most likely pain from kidney stone or muscle spasms. I discussed possibilities with the patient. I discussed with the patient kidney stones usually passed and will pass if it is a kidney stone. Patient has no problems defecating or urinating. Patient does have pain with urinating so will treat with antibiotics. Vital signs are normal patient is in no acute distress. Critical care attestation.: If time is entered above; I have spent that time in minutes in the direct care of this critically ill patient, excluding procedure time. ED Disposition Clinical Impression: Back pain, Dysuria Disposition: - TO HOME OR SELFCARE Is pt being admited?: No Does the pt Need Aspirin: No Condition: Stable Instructions: Kidney Stones (ED), Urinary Tract Infection in Women (ED), Flank Pain (ED), Heat Pack Application (ED) Additional Instructions: Make sure to follow up with the primary care physician as discussed. Take all your medications as you've been prescribed. If you have any worsening symptoms or develop new symptoms please return to ED immediately. Prescriptions: Phenazopyridine [Pyridium] 200 mg PO BID #10 tab Sulfamethoxazole/Trimethoprim [Bactrim DS TAB] 1 each PO BID #14 tablet traMADol [Ultram 50 MG tab] 50 mg PO Q6HR PRN #14 tablet PRN Reason: Pain Referrals: ISA MARTI MD [Primary Care Provider] - 3-5 Days ASHLEY GAMEZ MD [Referring] - 3-5 Days Forms: Accompanied Note, Work/School Release Form(ED) Time of Disposition: 17:46
[2018-10-18 18:34] VITALS: BP 119/73
== END 2018-10-18 18:33 | disposition home or self-care (01) ==
LOC: ED 15:45
DX: M54.5 Low back pain (principal); R30.0 Dysuria; F41.9 Anxiety disorder, unspecified; E03.9 Hypothyroidism, unspecified; Z86.2 Personal history of diseases of the blood and blood-forming organs and certain disorders involving the immune mechanism; Z91.013 Allergy to seafood
CPT/HCPCS: 81001; 81025; 99283